=== PATIENT | female | born 1985 | race Caucasian/White ===

== ENCOUNTER → 2018-07-13 | Outpatient (CLI) | payer OTHER ==
[2018-07-14 15:08] LABS: HPV 16 Negative (Negative); HPV 18 Negative (Negative); HPV OTHER HR TYPES Negative (Negative)
== END ==
LOC: LAB 10:50 → LAB SHORT 10:50
PROVIDERS: Registered Nurse Community Health
DX: Z12.4 Encounter for screening for malignant neoplasm of cervix (principal)
CPT/HCPCS: 87624; G0123

== ENCOUNTER 2019-08-19 08:51 | Emergency (ER) | payer OTHER ==
[~2019-08-19] VITALS: Ht 165.1 cm; Wt 56.7 kg
[2019-08-19] MEDS ORDERED: Atenolol25 MG PO (09:13)
[2019-08-19] MEDS ORDERED: Mobic15 MG PO (09:14)
[2019-08-19] MEDS ORDERED: CLON.5 PO (09:14)
== END 2019-08-19 10:22 | disposition home or self-care (01) ==
LOC: ER 08:51
DX: I73.00 Raynaud's syndrome without gangrene (principal)
CPT/HCPCS: 93926; 99283-25

== ENCOUNTER → 2021-05-21 | Outpatient (CLI) | payer OTHER ==
[~2021-05-21] MED LIST: Atenolol25 MG PO; CLON.5 PO; Mobic15 MG PO
[2021-05-23 15:10] LABS: HPV 16 Negative (Negative); HPV 18 Negative (Negative); HPV OTHER HR TYPES Negative (Negative)
== END ==
LOC: LAB 16:30 → LAB SHORT 16:30
PROVIDERS: Registered Nurse Community Health
DX: Z12.4 Encounter for screening for malignant neoplasm of cervix (principal)
CPT/HCPCS: 87624; G0123

== ENCOUNTER → 2021-07-22 | Outpatient (CLI) | payer OTHER | LOC: LAB SHORT 11:08 → LAB 11:08 | DX: D48.5 Neoplasm of uncertain behavior of skin (principal); Z88.8 Allergy status to other drugs, medicaments and biological substances | CPT/HCPCS: 88305 ==

== ENCOUNTER → 2021-08-12 | Outpatient (CLI) | payer OTHER | END | disposition home or self-care (01) | LOC: LAB 11:15 → LAB SHORT 11:15 | DX: C44.612 Basal cell carcinoma of skin of right upper limb, including shoulder (principal) | CPT/HCPCS: 88305 ==

== ENCOUNTER → 2022-07-09 | Outpatient (CLI) | payer OTHER | END | disposition home or self-care (01) | LOC: LAB 15:45 → LAB SHORT 15:45 | DX: L03.116 Cellulitis of left lower limb (principal) | CPT/HCPCS: 87070; 87075; 87205 ==

== ENCOUNTER → 2023-02-19 | Outpatient (CLI) | payer OTHER | END | disposition home or self-care (01) | LOC: LAB SHORT 16:20 → LAB 16:20 | DX: R21 Rash and other nonspecific skin eruption (principal) | CPT/HCPCS: 87070; 87205 ==

== ENCOUNTER → 2024-06-08 | Outpatient (CLI) | payer OTHER ==
[2024-06-08 19:25] LABS: BASOPHILS ABSOLUTE AUTO 0.04 K/mm3 (0.00-0.23); BASOPHILS PERCENT AUTO 1 % (0-2); EOSINOPHILS ABSOLUTE AUTO 0.01 K/mm3 (0.00-0.68); EOSINOPHILS PERCENT AUTO 0 % (0-6); Hematocrit 39.8 % (33.0-51.0); Hemoglobin 13.9 g/dL (11.5-16.0); IMMATURE GRAN ABSOLUTE AUTO 0.01 K/mm3 (0.00-0.10); IMMATURE GRAN PERCENT AUTO 0 % (0-1); LYMPHOCYTES ABSOLUTE AUTO 2.75 K/mm3 (0.84-5.20); LYMPHOCYTES PERCENT AUTO 40 % (21-46); MONOCYTES ABSOLUTE AUTO 0.29 K/mm3 (0.16-1.47); MONOCYTES PERCENT AUTO 4 % (4-13); Mean Corpuscular HGB Conc 34.9 g/dL (31.5-36.5); Mean Corpuscular Volume 95 fL (80-100); Mean Platelet Volume 11.3 fL (9.1-12.4); NEUTROPHILS ABSOLUTE AUTO 3.72 K/mm3 (1.96-9.15); NEUTROPHILS PERCENT AUTO 55 % (41-73); Platelet Count 194 K/mm3 (150-400); RDW Coefficient Variation 11.4 % (11.7-14.2); RDW Standard Deviation 39.4 fL (35.1-46.3); Red Blood Cell Count 4.21 M/mm3 (3.80-5.20); White Blood Cell Count 6.82 K/mm3 (4.00-11.30)
[2024-06-08 20:41] LABS: C-REACTIVE PROTEIN, EXT RANGE 0.482 mg/dL (0.000-0.300); Cholesterol 180 mg/dL (50-200); Ferritin, Serum 55 ng/mL (8-252); HDL Cholesterol 89 mg/dL (>39); Iron Serum 100 ug/dL (50-170); LDL/HDL RATIO 0.8; Low Density Lipoprotein Chol 75 mg/dL (0-110); Percent Saturation 28.2 % (15.0-50.0); Total Iron Binding Capacity 355 ug/dL (250-450); Triglycerides 80 mg/dL (30-140); Very Low Density Lipoprot Chol 16 mg/dL (6-28)
[2024-06-10 07:10] LABS: ALKALINE PHOSPHATASE, S 36 IU/L (44-121); ALT (SGPT) 12 IU/L (0-32); AST (SGOT) 21 IU/L (0-40); BILIRUBIN, TOTAL 0.6 mg/dL (0.0-1.2); BUN 13 mg/dL (6-20); BUN/CREATININE RATIO 13 (9-23); CALCIUM, SERUM 9.5 mg/dL (8.7-10.2); CARBON DIOXIDE, TOTAL 20 mmol/L (20-29); CHLORIDE, SERUM 99 mmol/L (96-106); CREATININE, SERUM 1.01 mg/dL (0.57-1.00); GLOBULIN, TOTAL 3.1 g/dL (1.5-4.5); GLUCOSE, SERUM 71 mg/dL (70-99); POTASSIUM, SERUM 4.2 mmol/L (3.5-5.2); PROTEIN, TOTAL, SERUM 7.5 g/dL (6.0-8.5); SODIUM, SERUM 136 mmol/L (134-144)
[2024-06-10 19:12] LABS: ANTI-NUCLEAR AB ANA,IGG ELISA Detected (None Detected)
[2024-06-11 09:38] LABS: ANA PATTERN Homogeneous; ANTINUCLEAR AB (ANA),HEP-2,IGG Detected (<1:80)
[2024-06-11 20:08] LABS: DOUBLE-STRANDED DNA IGG ELISA 5 IU (0-24)
[2024-06-12 08:46] LABS: SMITH/RNP (ENA) AB, IGG 2 Units (0-19)
[2024-06-12 21:52] LABS: JO-1 HISTIDYL-TRNA SYNTHET,IGG 1 AU/mL (0-40); SCLERODERMA (SCL-70) AB,IGG 0 AU/mL (0-40); SMITH (ENA) ANTIBODY, IGG 2 AU/mL (0-40); SSA-52 (RO52) (ENA) AB, IGG 6 AU/mL (0-40); SSA-60 (RO60) (ENA) AB, IGG 1 AU/mL (0-40); SSB (LA) (ENA) ANTIBODY, IGG 6 AU/mL (0-40)
== END ==
LOC: LAB SHORT 18:54 → LAB 18:54
PROVIDERS: Nurse Practitioner Family
DX: Z00.00 Encounter for general adult medical examination without abnormal findings (principal)
CPT/HCPCS: 80053; 80061; 82306; 82607; 82728; 82746; 83036; 83540; 83550; 84443; 85025; 85651; 86038; 86039; 86140; 86225; 86235

== ENCOUNTER 2025-11-01 07:18 | Day surgery (SDC) | payer OTHER ==
[~2025-11-01] VITALS: Ht 167.6 cm; Wt 59.3 kg
[2025-11-01] VITALS (7 sets, daily range): BP systolic 101–120; BP diastolic 52–84
[~2025-11-01 07:18] MED LIST changes: +Adderall 20 MG20 MG PO; -CLON.5 PO; +CLON1 PO; +CeFAZolin Sodium 2,000 MG in NS 100 ML IV SCH; +IMITREX50 M1 PO; +MAGNESIUM OXID500 MG PO; +MULTI-VITAMIN1 EAC2 PO; +PROM12.5S PR
[2025-11-01] MEDS ORDERED: FentaNYL Citrate 50 MCG/ML 2 ML Injection ONE (08:13)
[2025-11-01] MEDS ORDERED: Bupivacaine 0.5% HCl 5 MG/ML 30MLVIAL ONE (08:27)
--- NOTE | 2025-11-01 08:29 | NUR ---
PATIENT REQUESTS STRING BRACELET WITH METAL SHAPED HEART BE LEFT INTACT ON LEFT WRIST. TAPED METAL AND WAIVER SIGNED.
[2025-11-01] MEDS ORDERED: Midazolam HCl 1MG / ML 2ML Vial ONE (08:38)
[2025-11-01] MEDS ORDERED: Midazolam HCl 1MG / ML 2ML Vial IV ONE (08:40)
[2025-11-01] MEDS ORDERED: Dexamethasone Sod Phos 10 MG/ML 1ML VIAL ONE (09:06)
[2025-11-01] MEDS ORDERED: Ondansetron HCl 2 MG / ML 2ML Vial ONE (09:07)
[2025-11-01] MEDS ORDERED: HYDROcodone 5-APAP 325 TAB PO PRN (09:40)
--- NOTE | 2025-11-01 10:22 | NUR ---
Discharge instructions reviewed with patient. Patient verbalizes understanding. Copy given to patient to take home. Patient States Post-Procedure ride home has been arranged. Discharged via wheelchair to private car for ride home.
== END 2025-11-01 23:00 | disposition home or self-care (01) ==
LOC: ORSCMMR 07:18 → ORD 08:45 → ORSCMMR 23:00
PROVIDERS: Surgery
PROC: 0HBT0ZX Excision of Right Breast, Open Approach, Diagnostic (ICD-10-PCS; principal; 2025-11-01 08:45)
DX: D24.1 Benign neoplasm of right breast (principal); F90.9 Attention-deficit hyperactivity disorder, unspecified type; I73.00 Raynaud's syndrome without gangrene; Z79.899 Other long term (current) drug therapy
CPT/HCPCS: 88305; J0690; J1100; J2250; J2405; J2704; J3010; J7120